=== PATIENT | male | born 1935 | race Caucasian/White ===

== ENCOUNTER 2023-10-04 12:52 | Emergency (ER) | payer MEDICARE, SELFPAY ==
[2023-10-04] VITALS (14 sets, daily range): BP systolic 98–119; BP diastolic 61–79; BMI 25.8
[2023-10-04] MEDS: DILAUDID 1 MG IV (14:27)
[2023-10-04 14:38] LABS: % Basophils 0.7 % (0-2); % Eosinophils 2.5 % (0-6); % Immature Granulocytes 0.5 % (0-0.5); % Lymphocytes 13.1 % (20.5-51.1); % Monocytes 11.6 % (1.7-9.3); % Neutrophils 71.6 % (42.2-75.2); Absolute Eosinophils 0.1 10^3/uL (0-0.7); Absolute Lymphocytes 0.7 10^3/uL (1.2-3.4); Absolute Monocytes 0.6 10^3/uL (0.1-0.6); Absolute Neutrophils 3.9 10^3/uL (1.4-6.5); Hematocrit 38.7 % (39.0-52.0); Hemoglobin 12.8 g/dL (13.0-18.0); Mean Corp Hgb Conc. 33.1 g/dL (33.0-37.0); Mean Corpuscular Hgb 32.9 pg (27.0-31.0); Mean Corpuscular Volume 99.5 fL (80.0-94.0); Mean Platelet Volume 10.7 fL (7.4-10.4); Nucleated Red Blood Cells % 0 % (-); Platelet Count 151 10^3/uL (130-400); Red Blood Cell Count 3.89 10^6/uL (4.70-6.10); Red Cell Dist. Width 14.1 % (11.5-14.5); White Blood Cell Count 5.5 10^3/uL (4.8-10.8)
--- NOTE | 2023-10-04 15:05 | ED.GENMED ---
History of Present Illness
<Juan Jose Campbell Jr., PA-C - Last Filed: 10/06/23 23:46>
General
Chief Complaint: Extremity Pain (non-traumatic)
Source: patient
Exam Limitations: none
Time Seen by Provider: 10/04/23 13:13
Nursing documentation reviewed up to this point in time: agreed with
Travel History
Have you had any contact with someone who has COVID-19?: No
Do you have any symptoms of coronavirus? Fever > 100 degrees, chills, cough, shortness of breath, sore throat, loss of taste or smell, muscle aches, or headache?: No
History of Present Illness
History of Present Illness:
87-year-old male with past medical history of A-fib currently on Coumadin, bilateral hip repair feeling a pop in his left hip after leaning forward earlier today unable to weight-bear since. Left leg shorter compared to the right.
Past History
<Juan Jose Campbell Jr., PA-C - Last Filed: 10/06/23 23:46>
Past History
ED Past Medical History: Arrthythmia (Atrial fibrillation), CHF, HTN and Other (hypoxia-chronically O2 dependent)
ED Past Surgical History: Orthopedic (Bilateral hip replacements) and Tonsilectomy
Social History
Tobacco: Non-smoker
Alcohol: None
Personal:
Living: with family
Employment: Retired
Family History
Family History: Other (Noncontributory)
Review of Systems
<REGINE Guerrero Jr. Last Filed: 10/06/23 23:46>
Review of Systems
Allergies reviewed?: Yes
All Other Systems: ROS reviewed and negative except as documented in HPI and ROS
Phy Exam
<REGINE Guerrero Jr. Last Filed: 10/06/23 23:46>
Physical Exam
Physical Exam:
GENERAL: Alert , in no apparent distress
EYE: pupils equal and reactive
NECK: Supple, no significant adenopathy.
ENT: o/p clr, mmm.
CARDIAC: Regular rate and rhythm .
LUNGS: Clear breath sounds bilaterally, no acute respiratory distress, no wheezes/rales/rhonchi
ABDOMEN: Soft, without focal tenderness, no r/g, no cvat
NEUROLOGICAL: Alert and oriented, no focal neuro deficits
SKIN: Warm and dry, skin intact.
MUSCULOSKELETAL: Left leg shorter than right. Unable to move the left leg
Course
<Juan Jose Campbell Jr., BONNY-Gabino - Last Filed: 10/06/23 23:46>
Orders/Labs/Results
Orders:
Orders
10/04/23 13:13
Hip, Left 2-3 Views [CR Hip - LT w/wo Pel 2-3 Vw*] Urgent
Comment:
Reason For Exam: eval for dislocation
Include a pelvis x-ray?: Yes
10/04/23 13:59
HYDROmorphone [Dilaudid] 1 mg IV NOW STA
10/04/23 14:26
BMP [Basic Metabolic Panel] Urgent
CBC/With Diff [Complete Blood Count/With Diff] Urgent
10/04/23 15:36
PT/INR [Prothrombin Time] Urgent
10/04/23 16:13
Propofol [Diprivan] 20 ml .ROUTE .STK-MED
10/04/23 17:02
Hip, Left 1 View [CR Hip - LT without Pel 1 Vw] Stat
Comment:
Reason For Exam: left hip post reduction portable please
Abnormal Lab Results
10/04/23 10/04/23
14:26 15:36
RBC 3.89 L 10^6/uL
(4.70-6.10)
Hgb 12.8 L g/dL
(13.0-18.0)
Hct 38.7 L %
(39.0-52.0)
MCV 99.5 H fL
(80.0-94.0)
MCH 32.9 H pg
(27.0-31.0)
MPV 10.7 H fL
(7.4-10.4)
Absolute Lymphs (auto) 0.7 L 10^3/uL
(1.2-3.4)
Lymphocytes % 13.1 L %
(20.5-51.1)
Monocytes % 11.6 H %
(1.7-9.3)
PT 24.6 H Sec
(11.4-14.6)
Carbon Dioxide 35 H mmol/L
(22-30)
BUN 25 H mg/dl
(9-20)
Glucose 115 H mg/dl
(70-99)
10/04/23 14:26
10/04/23 14:26
Vital Signs
Initial and Last Documented VS:
Initial Vital Signs
Temp Pulse Resp BP Pulse Ox
96.7 F L 68 20 119/79 96
10/04/23 13:17 10/04/23 13:17 10/04/23 13:17 10/04/23 13:17 10/04/23 13:17
Last Documented Vital Signs
Temp Pulse Resp BP Pulse Ox
97.7 F 71 14 108/68 95
10/04/23 17:30 10/04/23 18:00 10/04/23 18:00 10/04/23 18:00 10/04/23 17:30
Nohemylt;Fernando Faith, - Last Filed: 10/04/23 17:34>
Orders/Labs/Results
Orders:
Orders
10/04/23 13:13
Hip, Left 2-3 Views [CR Hip - LT w/wo Pel 2-3 Vw*] Urgent
Comment:
Reason For Exam: eval for dislocation
Include a pelvis x-ray?: Yes
10/04/23 13:59
HYDROmorphone [Dilaudid] 1 mg IV NOW STA
10/04/23 14:26
BMP [Basic Metabolic Panel] Urgent
CBC/With Diff [Complete Blood Count/With Diff] Urgent
10/04/23 15:36
PT/INR [Prothrombin Time] Urgent
10/04/23 16:13
Propofol [Diprivan] 20 ml .ROUTE .STK-MED
10/04/23 17:02
Hip, Left 1 View [CR Hip - LT without Pel 1 Vw] Stat
Comment:
Reason For Exam: left hip post reduction portable please
Abnormal Lab Results
10/04/23 10/04/23
14:26 15:36
RBC 3.89 L 10^6/uL
(4.70-6.10)
Hgb 12.8 L g/dL
(13.0-18.0)
Hct 38.7 L %
(39.0-52.0)
MCV 99.5 H fL
(80.0-94.0)
MCH 32.9 H pg
(27.0-31.0)
MPV 10.7 H fL
(7.4-10.4)
Absolute Lymphs (auto) 0.7 L 10^3/uL
(1.2-3.4)
Lymphocytes % 13.1 L %
(20.5-51.1)
Monocytes % 11.6 H %
(1.7-9.3)
PT 24.6 H Sec
(11.4-14.6)
Carbon Dioxide 35 H mmol/L
(22-30)
BUN 25 H mg/dl
(9-20)
Glucose 115 H mg/dl
(70-99)
10/04/23 14:26
10/04/23 14:26
Vital Signs
Initial and Last Documented VS:
Initial Vital Signs
Temp Pulse Resp BP Pulse Ox
96.7 F L 68 20 119/79 96
10/04/23 13:17 10/04/23 13:17 10/04/23 13:17 10/04/23 13:17 10/04/23 13:17
Last Documented Vital Signs
Temp Pulse Resp BP Pulse Ox
97.7 F 71 14 108/68 95
10/04/23 17:30 10/04/23 18:00 10/04/23 18:00 10/04/23 18:00 10/04/23 17:30
Procedures
<Juan Jose Campbell Jr., PA-C - Last Filed: 10/06/23 23:46>
Moderate Sedation
ASA Risk Score: Class III
Chart and allergies reviewed: Yes
Consent for anesthesia obtained: Yes
Time out completed (validating right patient & procedure): Yes
History of difficult intubation: No
Airway free of obstruction: Yes
Patient has a gag reflex: Yes
Patient is able to open mouth: Yes
Patient has no dentures: Yes
Patient has no loose teeth: Yes
Medication administered by Provider during Moderate Sedation: IV Propofol (mg) (40)
Total dose administered: 40
Time drug administered: 17:00
Start Time: 17:00
Stop Time: 17:11
Joint/Fracture Reduction
Left Hip:
Indication for procedure:: hip dislocation
Procedure completed by: Myself
Consent form signed: Yes
Joint reduced: with anesthesia sedation
Anesthesia/sedation: Moderate sedation
Injury was: closed
Further treatement: needs further treatment
Post reduction exam: stable
Capillary Refill: normal
Normal distal neurovascular exam?: Yes
Peripheral Pulses: dorsalis pedis (left): 2+
<Fernando Faith DO - Last Filed: 10/04/23 17:34>
Moderate Sedation
Stop Time: 17:19
<Juan Jose Campbell Jr., PA-C - Last Filed: 10/06/23 23:46>
MDM/Problems Addressed
MDM/Problems Addressed:
87-year-old male presenting to the emergency department today with concerns of left hip popping sensation also shortening of the left leg since. Concern for hip dislocation. X-ray confirming hip dislocation plan for procedural sedation and
reduction. Patient given Dilaudid for pain. Patient was given propofol hip was reduced first attempt tolerated well. Discharged in stable condition
<Juan Jose Campbell Jr., PA-C - Last Filed: 10/06/23 23:46>
*Critical Care Note
Total Time (30-74mins, 75-104mins- exclusive of procedures): Not Applicable
ED Attending Note
<Juan Jose Campbell Jr., PA-C - Last Filed: 10/06/23 23:46>
-
Portions of this chart may have been created with voice recognition software.� Occasional wrong word or��sound alike� substitutions may have occurred due to the inherent limitations of voice recognition software.
<Fernando Faith DO - Last Filed: 10/04/23 17:34>
ED Attending Note
Patient seen and examined by attending physician: Yes
I performed the substantive portion of visit, reviewed & personally made and approve the management plan that is documented in note by myself or RUBIO.: Yes
ED Attending Note:
87-year-old male presents with left hip pain after bending over. Patient has a history of hip replacement. My evaluation the patient does have bilateral lower extremity edema with a shortened left lower extremity. Assessment and plan: Hip was
reduced at bedside by DELORIS Almanzar. I was present for the reduction. Sedation performed by me with 40 mg of propofoL. See documentation by REGINE
Discharge Plan
Departure
Patient Disposition: Home (Routine Discharge)
Patient with high blood pressure during this ER visit?: No
Condition: Good
Covid-19: Not Applicable
Discharge Problem:
Dislocated hip
Instructions: Hip Dislocation (DC), MODERATE SEDATION ADULT
Prescriptions:
No Action
ferrous sulfate [FeroSul] 325 MG tablet
325 mg PO DAILY
acetaminophen 500 mg Tablet
500 mg PO DAILY
ergocalciferol (vitamin D2) 1,250 mcg (50,000 unit) Capsule
1,250 mcg PO TU
warfarin 1 mg Tablet
3 mg PO MO
warfarin [Jantoven] 1 MG tablet
2.5 mg PO SUTUWETHFRSA
metoprolol succinate 25 mg Tablet Extended Release 24 Hr
25 mg PO QPM
metoprolol succinate 50 MG tablet extended release 24 hr
50 mg PO QDAY
Rx Instructions:
AM
furosemide [Lasix] 80 mg tablet
80 mg PO BID Qty: 60 0RF
potassium chloride [Klor-Con M20] 20 MEQ tablet,ER particles/crystals
20 meq PO DAILY 30 Days 0RF
allopurinol 300 MG tablet
300 mg PO DAILY 30 Days 0RF
rosuvastatin 5 MG tablet
5 mg PO QPM 30 Days 0RF
Referrals:
Vj Ash MD [Family Provider] -
Activity Restrictions/Additional Instructions:
You came to the emergency department today with concerns of a hip dislocation. This was reduced here. Please avoid any excessive flexion of the hip and follow-up closely with your orthopedic doctor. Return to the emergency department for any
worsening, new or concerning symptoms.
Maintain dislocation precautions:
Do not bend the operated hip past 90 degrees
Umer splint or other knee immobilizer can help with this as most individuals cannot flex hip without flexing knee
Do not cross the midline of the body with operated leg (use hip abduction pillow)
Do not rotate the operated leg inward
In bed, toes and knee cap should point toward ceiling
Interventions
Interventions:
*Risk Screen - Suicide Last Done: 10/04/23 13:54
*General Assessment Last Done: 10/04/23 13:54
*Neglect/Abuse Screening Last Done: 10/04/23 13:54
ED- Fall Risk Assessment Last Done: 10/04/23 13:54
*ED COVID-19 Vaccine History Last Done: 10/04/23 15:37
*Nursing Disposition Last Done: 10/04/23 18:47
ED-Skin Assessment Last Done: 10/04/23 15:38
ED-Musculoskeletal Assessment Last Done: 10/04/23 15:38
Discharge Date and Time
Discharge Date/Time: 10/04/23 18:47
Print Language: PALESTINIAN
[2023-10-04 15:08] LABS: Blood Urea Nitrogen 25 mg/dl (9-20); Calcium 9.5 mg/dl (8.4-10.2); Carbon Dioxide 35 mmol/L (22-30); Chloride 98 mmol/L (98-107); Estimated Creatinine Clearance 67 ml/min; Glucose 115 mg/dl (70-99); Potassium 3.5 mmol/L (3.5-5.1); Sodium 137 mmol/L (135-145); eGFR > 60.00
[2023-10-04 15:54] LABS: INR 2.24; PT 24.6 Sec (11.4-14.6)
== END 2023-10-04 18:47 | disposition home or self-care (01) ==
LOC: EMR 12:52
PROVIDERS: Physician Assistant; EMERGENCY PHYSICIAN Emergency Medicine; FAMILY PHYSICIAN Family Medicine
DX: T84.021A Dislocation of internal left hip prosthesis, initial encounter (principal); Y79.2 Prosthetic and other implants, materials and accessory orthopedic devices associated with adverse incidents
CPT/HCPCS: 99284; 27266; 73501; 73502; 80048; 85025; 85610

== ENCOUNTER → 2024-06-25 10:24 | Outpatient (REF) | payer MEDICARE, SELFPAY ==
[2024-06-25 11:11] LABS: Blood Urea Nitrogen 50 mg/dl (9-20); Calcium 9.8 mg/dl (8.4-10.2); Chloride 90 mmol/L (98-107); Glucose 123 mg/dl (70-99); Potassium 2.8 mmol/L (3.5-5.1); Sodium 140 mmol/L (135-145); eGFR 52.84
[2024-06-25 11:23] LABS: Carbon Dioxide 40 mmol/L (22-30)
== END ==
LOC: REG 10:24
PROVIDERS: ATTENDING PHYSICIAN Family Medicine
DX: E87.6 Hypokalemia (principal)
CPT/HCPCS: 36415; 80048

== ENCOUNTER → 2024-06-29 10:54 | Outpatient (REF) | payer MEDICARE, SELFPAY ==
[2024-06-29 12:11] LABS: Blood Urea Nitrogen 36 mg/dl (9-20); Calcium 9.8 mg/dl (8.4-10.2); Carbon Dioxide 38 mmol/L (22-30); Chloride 90 mmol/L (98-107); Glucose 170 mg/dl (70-99); Potassium 3.3 mmol/L (3.5-5.1); Sodium 139 mmol/L (135-145); eGFR > 60.00
== END ==
LOC: REG 10:54
PROVIDERS: ATTENDING PHYSICIAN Physician Assistant
DX: E87.6 Hypokalemia (principal)
CPT/HCPCS: 36415; 80048

== ENCOUNTER 2024-10-04 04:08 | Emergency (ER) | payer MEDICARE, SELFPAY ==
[2024-10-04 04:11] VITALS: BP 120/86
[2024-10-04 04:29] VITALS: BMI 26.8
--- NOTE | 2024-10-04 04:30 | EDRN ---
Pt says he was walking into his bedroom, got lightheaded so he sat on the floor. Pt felt 'really lightheaded' then. Daughter at bedside says pt's O2 was 81% on 3.5 lpm O2. Pt told family he did not feel right so he was brought to the ED. Pt adds
he is not sure he had his O2 on when he sat down because he was in the bathroom and removed it to blow his nose. Pt had bloodwork done on and daughter says she has not gotten the results yet. No cp, abd pain, n/v/d/c, fever/chills/cough,
urinary symptoms, weakness.
--- NOTE | 2024-10-04 04:59 | ED.GENMED ---
History of Present Illness
General
Chief Complaint: Breathing Problem
Source: patient
Exam Limitations: none
Time Seen by Provider: 10/04/24 04:52
History of Present Illness
History of Present Illness:
See MDM
Past History
Past History
ED Past Medical History: Arrthythmia (Atrial fibrillation), CHF, HTN and Other (hypoxia-chronically O2 dependent)
ED Past Surgical History: Orthopedic (Bilateral hip replacements) and Tonsilectomy
Social History
Tobacco: Non-smoker
Alcohol: None
Personal:
Living: with family
Employment: Retired
Family History
Family History: Other (Noncontributory)
Phy Exam
Physical Exam
Physical Exam:
See MDM
Scores
Heart Failure Risk
Heart Failure Risk Score: Yes
History of Stroke or TIA: No
History of intubation for respiratory distress: No
Heart rate on ED arrival >/= 110: No
SaO2 <90% on arrival on room air: Yes
HR >/=110 during 3min walk test (or too ill to perform test): Yes
ECG has acute ischemic changes: No
Urea >/=12mmol/L (BUN 33.6mg/dL): No
Serum CO2>/=35mmol/L: No
Troponin I or T elevated to VT Level (0.4mg/dL): No
NT-proBNP >/=5,000ng/L (5,000pg/ml): Yes
HF Risk Score: 4
Admission Status: HIGH RISK 26.1% Consider SNF treatment or admission to hospital
Course
Orders/Labs/Results
Orders:
Orders
10/04/24 04:54
BNP [NT-proBNP] Urgent
Complete Blood Count/With Diff Urgent
Comprehensive Metabolic Panel Urgent
PT/INR [Prothrombin Time] Urgent
10/04/24 04:55
Chest [CR Chest - 2 Views ] Urgent
Comment:
Reason For Exam: lightheaded, low pulse ox
10/04/24 04:59
Electrocardiogram (*1) Urgent
Reason for Study: Shortness of Breath
EKG- Treatment ONCE
10/04/24 05:43
Metolazone [Zaroxolyn] 2.5 mg PO NOW STA
Abnormal Lab Results
10/04/24
04:54
RBC 3.54 L 10^6/uL
(4.70-6.10)
Hgb 11.5 L g/dL
(13.0-18.0)
Hct 36.2 L %
(39.0-52.0)
MCV 102.3 H fL
(80.0-94.0)
MCH 32.5 H pg
(27.0-31.0)
MCHC 31.8 L g/dL
(33.0-37.0)
RDW 14.7 H %
(11.5-14.5)
Plt Count 126 L 10^3/uL
(130-400)
MPV 10.8 H fL
(7.4-10.4)
Absolute Lymphs (auto) 0.8 L 10^3/uL
(1.2-3.4)
Immature Gran % 0.6 H %
(0-0.5)
Neutrophils % 75.3 H %
(42.2-75.2)
Lymphocytes % 12.6 L %
(20.5-51.1)
Monocytes % 9.4 H %
(1.7-9.3)
PT 24.7 H Sec
(11.4-14.6)
Carbon Dioxide 32 H mmol/L
(22-30)
BUN 30 H mg/dl
(9-20)
Glucose 118 H mg/dl
(70-99)
10/04/24 04:54
10/04/24 04:54
Vital Signs
Initial and Last Documented VS:
Initial Vital Signs
Temp Pulse Resp BP Pulse Ox
98 F 90 24 120/86 98
10/04/24 04:11 10/04/24 04:11 10/04/24 04:11 10/04/24 04:11 10/04/24 04:11
Last Documented Vital Signs
Temp Pulse Resp BP Pulse Ox
98 F 74 20 122/80 94
10/04/24 04:11 10/04/24 05:00 10/04/24 05:00 10/04/24 05:00 10/04/24 05:00
MDM/Problems Addressed
Differential Diagnosis Includes:
HPI and MDM Narrative:
88-year-old male presenting for evaluation of shortness of breath. This occurred while he was walking at home. He had to rest and bring himself to the ground. When he was lifted up, his pulse ox was found to be 81%. Patient lives around 3.5 L
nasal cannula chronically. On arrival, patient was placed on his baseline nasal cannula and satting at 96%. He states all shortness of breath has resolved. Patient was actually due for metolazone today. He takes this about once every 2 weeks
when his weight goes up. Daughter at bedside states this usually helps significantly. Given his history, will obtain chest x-ray and basic blood work
Physical exam
General: Well appearing and non-toxic
HEENT: protecting airway
Neck: appears supple
CV: No evidence of cyanosis. Irregular rhythm
Resp: No accessory muscle use. Decreased breath sounds at bases
Abd: Non-distended
Extremities: +3 pitting edema bilateral lower extremities (chronic per patient)
Neuro: alert
Psych: Normal affect
Skin: Intact
Problems Addressed including Acute and Chronic Conditions affecting care:
1. Shortness of breath
Acuity: acute
Prognosis: stable
Details: Potentially setting of CHF exacerbation. Will obtain chest x-ray
Updates
Chest x-ray consistent with right pleural effusion and congestive heart failure. There is a questionable infiltrate in the right middle lobe but these lung markings can be seen on prior x-rays as well. Given no fever or leukocytosis, will treat as
CHF rather than pneumonia. Both patient and daughter feel comfortable going home. Will give dose of metolazone emergency department and they will go home and take Lasix
Differential Diagnosis (but not limited to): CHF exacerbation, COPD, pneumonia
Testing considered: D-dimer
Drug therapy (if applicable): OTC meds, please see d/c instruction regarding Rx drugs
Amount and/or Complexity of Data Reviewed
Clinical info obtained from: Patient and daughter
External data reviewed: N/A
Labs I independently reviewed (but not limited to): Elevated BNP
Radiology: X-ray independently reviewed: Chest x-ray consistent with CHF exacerbation
Pulse Ox: not hypoxic
EKG independently reviewed: A-fib, normal axis, no STEMI
Horse Breaker: A-fib
Critical Care: N/A
Risk of Complication:
Social Determinants of health: Good social support
Discussed with other providers: N/A
Escalation of Care includes Admit/Obs: After being observed in the Emergency Department, pt stable for discharge.
Occasional wrong word or 'sound a like' substitutions may have occurred due to the inherent limitations of voice recognition software. Read the chart carefully and recognize, using context, where substitutions have occurred.
*Critical Care Note
Total Time (30-74mins, 75-104mins- exclusive of procedures): Not Applicable
ED Attending Note
-
Portions of this chart may have been created with voice recognition software.� Occasional wrong word or��sound alike� substitutions may have occurred due to the inherent limitations of voice recognition software.
Discharge Plan
Departure
Patient Disposition: Home (Routine Discharge)
Date of Disposition: 10/04/24
Time of Disposition: 05:44
Patient with high blood pressure during this ER visit?: No
Discharge Problem:
Acute CHF (congestive heart failure)
Prescriptions:
No Action
ferrous sulfate [FeroSul] 325 MG tablet
325 mg PO DAILY
ergocalciferol (vitamin D2) 1,250 mcg (50,000 unit) Capsule
1,250 mcg PO TU
warfarin 1 mg Tablet
3 mg PO MOFR
warfarin [Jantoven] 1 MG tablet
2.5 mg PO SUTUWETHSA
metoprolol succinate 25 mg Tablet Extended Release 24 Hr
25 mg PO QPM
metoprolol succinate 50 MG tablet extended release 24 hr
50 mg PO QDAY
Rx Instructions:
AM
furosemide [Lasix] 40 mg Tablet
80 mg PO BID
metolazone 2.5 mg Tablet
2.5 mg PO DAILYPRN PRN (Reason: weight 185lbs or more)
Rx Instructions:
take 30 minutes prior to lasix
calcium
1 tab PO DAILY
potassium chloride [Klor-Con M20] 20 MEQ tablet,ER particles/crystals
60 meq PO DAILY
rosuvastatin 5 MG tablet
5 mg PO HS
allopurinol 300 MG tablet
300 mg PO DAILY 30 Days 0RF
Referrals:
Catracho Cardenas MD [Family Provider] -
Activity Restrictions/Additional Instructions:
Please return for any worsening symptoms.
You may return at any time if you have further concerns.
Please follow up with your doctor at the first available appointment, preferably this week.
Thank you for choosing [facility].
Interventions
Interventions:
*Risk Screen - Suicide Last Done: 10/04/24 04:11
*General Assessment Last Done: 10/04/24 04:29
*Neglect/Abuse Screening Last Done: 10/04/24 04:11
*ED- Fall Risk Assessment Last Done: 10/04/24 05:02
*ED COVID-19 Vaccine History Last Done: 10/04/24 04:29
ED- Cardiac Assessment Last Done: 10/04/24 05:02
ED- Pulmonary Assessment Last Done: 10/04/24 05:02
Discharge Date and Time
Print Language: CZECH
[2024-10-04 05:00] VITALS: BP 122/80
[2024-10-04 05:08] LABS: % Basophils 0.3 % (0-2); % Eosinophils 1.8 % (0-6); % Immature Granulocytes 0.6 % (0-0.5); % Lymphocytes 12.6 % (20.5-51.1); % Monocytes 9.4 % (1.7-9.3); % Neutrophils 75.3 % (42.2-75.2); Absolute Eosinophils 0.1 10^3/uL (0-0.7); Absolute Lymphocytes 0.8 10^3/uL (1.2-3.4); Absolute Monocytes 0.6 10^3/uL (0.1-0.6); Absolute Neutrophils 4.7 10^3/uL (1.4-6.5); Hematocrit 36.2 % (39.0-52.0); Hemoglobin 11.5 g/dL (13.0-18.0); Mean Corp Hgb Conc. 31.8 g/dL (33.0-37.0); Mean Corpuscular Hgb 32.5 pg (27.0-31.0); Mean Corpuscular Volume 102.3 fL (80.0-94.0); Mean Platelet Volume 10.8 fL (7.4-10.4); Nucleated Red Blood Cells % 0 % (-); Platelet Count 126 10^3/uL (130-400); Red Blood Cell Count 3.54 10^6/uL (4.70-6.10); Red Cell Dist. Width 14.7 % (11.5-14.5); White Blood Cell Count 6.3 10^3/uL (4.8-10.8)
[2024-10-04 05:12] LABS: INR 2.23; PT 24.7 Sec (11.4-14.6)
[2024-10-04 05:18] LABS: ALT (SGPT) 22 U/L (0-50); AST (SGOT) 35 U/L (17-59); Alkaline Phosphatase 121 U/L (38-126); Blood Urea Nitrogen 30 mg/dl (9-20); Calcium 9.4 mg/dl (8.4-10.2); Carbon Dioxide 32 mmol/L (22-30); Chloride 102 mmol/L (98-107); Estimated Creatinine Clearance 53 ml/min; Glucose 118 mg/dl (70-99); Potassium 4.3 mmol/L (3.5-5.1); Sodium 143 mmol/L (135-145); Total Protein 7.1 g/dl (6.3-8.2); eGFR > 60.00
[2024-10-04 05:29] LABS: NT-proBNP 5430 pg/ml
[2024-10-04 05:44] VITALS: BP 119/78
[2024-10-04] MEDS: ZAROXOLYN 2.5 MG PO (05:46)
== END 2024-10-04 06:10 | disposition home or self-care (01) ==
LOC: EMR 04:08
PROVIDERS: EMERGENCY PHYSICIAN Student in an Organized Health Care Education/Training Program; FAMILY PHYSICIAN Family Medicine
DX: I11.0 Hypertensive heart disease with heart failure (principal); I50.9 Heart failure, unspecified; Z99.81 Dependence on supplemental oxygen; I48.91 Unspecified atrial fibrillation
CPT/HCPCS: 99285; 71046; 80053; 83880; 85025; 85610; 93005

== ENCOUNTER 2024-12-23 07:48 | Emergency (ER) | payer MEDICARE, SELFPAY ==
[2024-12-23 07:58] VITALS: BP 116/70
[2024-12-23 08:00] VITALS: BP 114/58
--- NOTE | 2024-12-23 09:06 | ED.GENMED ---
History of Present Illness
General
Chief Complaint: Skin Problem
Source: patient and family
Exam Limitations: none
Time Seen by Provider: 12/23/24 07:52
History of Present Illness
History of Present Illness:
89-year-old male presents with a rash to his left thigh along with pain to the left groin. Progressive over days. No fever chills nausea or vomiting. Increased pain with weightbearing. Concerned of recent tick bites.
Past History
Past History
ED Past Medical History: Arrthythmia (Atrial fibrillation), CHF, HTN and Other (hypoxia-chronically O2 dependent)
ED Past Surgical History: Orthopedic (Bilateral hip replacements) and Tonsilectomy
Social History
Tobacco: Non-smoker
Alcohol: None
Personal:
Living: with family
Employment: Retired
Family History
Family History: Other (Noncontributory)
Review of Systems
Review of Systems
All Other Systems: Not applicable
Constitutional: Denies fever or chills
Respiratory: Reports no symptoms
Cardiac: Reports no symptoms
ABD/GI: Reports no symptoms
Phy Exam
Physical Exam
Physical Exam:
GENERAL: Alert and oriented in no apparent distress. Elderly and frail
EYE: Orbits normal.
NECK: Supple
CARDIAC: Regular rate and rhythm without any obvious murmurs.
LUNGS: Clear breath sounds,normal. Chronic oxygen use
ABDOMEN: Soft, without focal tenderness or distention
Pelvic: Bilateral large inguinal hernias. Nontender. Tender adenopathy to the left inguinal area.
NEUROLOGICAL: Alert and oriented , grossly non-focal
SKIN: Warm and dry, area of ecchymosis to the left lower thigh
MUSCULOSKELETAL: Significant bilateral lower extremity pitting edema left greater than right
PSYCH: Normal and appropriate interaction.
Course
Orders/Labs/Results
Orders:
Orders
12/23/24 08:29
IV Insert/Care/Rem.- Treatment PRN
Femur, Left 2 View [CR Femur - Left Min 2 Vw] Urgent
Comment:
Reason For Exam: Nontraumatic pain
12/23/24 08:51
Basic Metabolic Panel Urgent
Complete Blood Count/With Diff Urgent
Lyme Progressive Urgent
PTT Urgent
Prothrombin Time Urgent
12/23/24 10:13
CT Lower Ext W/o Iv Cont Lt Urgent
Comment:
Reason For Exam: swelling left inguinal area
12/23/24 12:51
Acetaminophen [Tylenol] 650 mg PO NOW STA
Physical Therapy Consult [Pt Eval And Treat] Urgent
Activity Level: Ambulate
12/23/24 14:27
Case Management Consult ONCE
Case Management Consult: VN/Home Care
Abnormal Lab Results
12/23/24
08:51
RBC 3.28 L 10^6/uL
(4.70-6.10)
Hgb 10.8 L g/dL
(13.0-18.0)
Hct 33.3 L %
(39.0-52.0)
MCV 101.5 H fL
(80.0-94.0)
MCH 32.9 H pg
(27.0-31.0)
MCHC 32.4 L g/dL
(33.0-37.0)
RDW 15.0 H %
(11.5-14.5)
MPV 10.8 H fL
(7.4-10.4)
Absolute Lymphs (auto) 0.9 L 10^3/uL
(1.2-3.4)
Absolute Monos (auto) 0.7 H 10^3/uL
(0.1-0.6)
Lymphocytes % 12.2 L %
(20.5-51.1)
Monocytes % 10.1 H %
(1.7-9.3)
PT 36.1 H Sec
(11.4-14.6)
APTT 38.6 H Sec
(23.4-35.0)
Potassium 3.4 L mmol/L
(3.5-5.1)
Carbon Dioxide 37 H mmol/L
(22-30)
BUN 29 H mg/dl
(9-20)
Glucose 121 H mg/dl
(70-99)
12/23/24 08:51
12/23/24 08:51
Vital Signs
Initial and Last Documented VS:
Initial Vital Signs
BP
116/70
12/23/24 07:58
Last Documented Vital Signs
Pulse BP Pulse Ox
68 117/72 96
12/23/24 13:09 12/23/24 14:15 12/23/24 15:00
MDM/Problems Addressed
Differential Diagnosis Includes:
Tenderness to the left of inguinal area. Large hernias although nontender and known. Area of ecchymosis to left medial thigh. To consider hematoma, soft tissue injury, doubt Lyme issue although will be sent. Doubt bony issue although will check
x-ray. Doubt acute vascular issue.
*Radiology
Radiology exam reviewed: radiology read reviewed (No acute findings. Inguinal hernia)
*Pulse Oximetry
Patient hypoxic: no (97)
*Critical Care Note
Total Time (30-74mins, 75-104mins- exclusive of procedures): Not Applicable
Data Reviewed
Review of Other/Old Records Reveals: Labs, Records and Testing
Update Note
Update Note:
Patient has remained medically stable and nontoxic. No inguinal hernia. Clinically not incarcerated. Not really the point of tenderness. He clearly has an area of ecchymosis down his left leg. This may be all some kind of local soft tissue
trauma causing hematoma and bleeding down the leg. Discussed inpatient versus outpatient management inpatient management was offered. However patient feel strongly that he would like to go home. He will hold his Coumadin today. Discussed further
dosing with his primary physician. We will have physical therapy evaluate. If he cannot walk he will need admission. If he cannot walk and still would prefer outpatient follow-up that is not unreasonable
Patient ambulated well with a walker. Would like to go home. We will get home health via case management
ED Attending Note
-
Portions of this chart may have been created with voice recognition software.� Occasional wrong word or��sound alike� substitutions may have occurred due to the inherent limitations of voice recognition software.
Discharge Plan
Departure
Patient Disposition: Home (Routine Discharge)
Date of Disposition: 12/23/24
Time of Disposition: 14:32
Patient with high blood pressure during this ER visit?: No
Discharge Problem:
Left groin/leg pain, Supratherapeutic INR, Chronic bilateral edema
Instructions: BLOOD PRESSURE
Prescriptions:
No Action
ferrous sulfate [FeroSul] 325 MG tablet
325 mg PO DAILY
ergocalciferol (vitamin D2) 1,250 mcg (50,000 unit) Capsule
1,250 mcg PO TU
warfarin 1 mg Tablet
3 mg PO MOFR
warfarin [Jantoven] 1 MG tablet
2.5 mg PO SUTUWETHSA
metoprolol succinate 25 mg Tablet Extended Release 24 Hr
25 mg PO QPM
metoprolol succinate 50 MG tablet extended release 24 hr
50 mg PO QDAY
Rx Instructions:
AM
furosemide [Lasix] 40 mg Tablet
80 mg PO BID
metolazone 2.5 mg Tablet
2.5 mg PO DAILYPRN PRN (Reason: weight 185lbs or more)
Rx Instructions:
take 30 minutes prior to lasix
calcium
1 tab PO DAILY
potassium chloride [Klor-Con M20] 20 MEQ tablet,ER particles/crystals
60 meq PO DAILY
rosuvastatin 5 MG tablet
5 mg PO HS
allopurinol 300 MG tablet
300 mg PO DAILY 30 Days 0RF
Referrals:
Catracho Cardenas MD [Family Provider, [facility]] - Tomorrow
Activity Restrictions/Additional Instructions:
No Coumadin today. Get your INR repeated tomorrow. And follow-up dosing with your primary physician
Recheck with increased pain swelling of the leg. Inability to ambulate. Abdominal pain fever or any other concerning symptoms
Interventions
Interventions:
*Risk Screen - Suicide Last Done: 12/23/24 08:47
*General Assessment Last Done: 12/23/24 08:47
*Neglect/Abuse Screening Last Done: 12/23/24 09:14
*ED COVID-19 Vaccine History Last Done: 12/23/24 08:47
*Nursing Disposition Last Done: 12/23/24 15:56
ED-Skin Assessment Last Done: 12/23/24 14:00
Discharge Date and Time
Discharge Date/Time: 12/23/24 16:04
Print Language: EQUATORIAL GUINEAN
[2024-12-23 09:07] LABS: % Basophils 0.4 % (0-2); % Eosinophils 1.9 % (0-6); % Immature Granulocytes 0.4 % (0-0.5); % Lymphocytes 12.2 % (20.5-51.1); % Monocytes 10.1 % (1.7-9.3); Absolute Eosinophils 0.1 10^3/uL (0-0.7); Absolute Lymphocytes 0.9 10^3/uL (1.2-3.4); Absolute Monocytes 0.7 10^3/uL (0.1-0.6); Absolute Neutrophils 5.5 10^3/uL (1.4-6.5); Hematocrit 33.3 % (39.0-52.0); Hemoglobin 10.8 g/dL (13.0-18.0); Mean Corp Hgb Conc. 32.4 g/dL (33.0-37.0); Mean Corpuscular Hgb 32.9 pg (27.0-31.0); Mean Corpuscular Volume 101.5 fL (80.0-94.0); Mean Platelet Volume 10.8 fL (7.4-10.4); Nucleated Red Blood Cells % 0 % (-); Platelet Count 148 10^3/uL (130-400); Red Blood Cell Count 3.28 10^6/uL (4.70-6.10); White Blood Cell Count 7.4 10^3/uL (4.8-10.8)
[2024-12-23 09:18] LABS: APTT 38.6 Sec (23.4-35.0); INR 3.59; PT 36.1 Sec (11.4-14.6)
[2024-12-23 09:35] LABS: Blood Urea Nitrogen 29 mg/dl (9-20); Calcium 9.5 mg/dl (8.4-10.2); Carbon Dioxide 37 mmol/L (22-30); Chloride 99 mmol/L (98-107); Glucose 121 mg/dl (70-99); Potassium 3.4 mmol/L (3.5-5.1); Sodium 142 mmol/L (135-145); eGFR > 60.00
[2024-12-23] MEDS: TYLENOL 650 MG PO (13:01)
[2024-12-23 13:09] VITALS: BP 124/69; BMI 25.4
[2024-12-23 13:55] VITALS: BP 107/63
[2024-12-23 14:15] VITALS: BP 107/63; BP 117/72; PULSE 82; O2SAT 99
--- NOTE | 2024-12-23 15:07 | CM ---
CM reviewed chart and met with pt and daughter Prerna bedside in ED.
Pt lives with , I level home, [address], daughter and FLETCHER live in other half of house
Independent in ADLs, personal care and ambulation at baseline, was using cane, now will use walker
Also has O2 continuous, 3L NC, has shower chair, commode
Pt has hx [facility], agreeable to referral. Referral sent via [facility].
Daughter Prerna is POA and best contact [phone]
PCP: Catracho Cardenas
Pharmacy: [facility] [address], [place]
[2024-12-24 13:28] LABS: Lyme Antibody Screen, EIA Equivocal (Negative)
== END 2024-12-23 16:04 | disposition home or self-care (01) ==
LOC: EMR 07:48
PROVIDERS: EMERGENCY PHYSICIAN Emergency Medicine; FAMILY PHYSICIAN Family Medicine
DX: M79.605 Pain in left leg (principal); R10.32 Left lower quadrant pain; R79.1 Abnormal coagulation profile; R60.0 Localized edema; S70.12XA Contusion of left thigh, initial encounter; X58.XXXA Exposure to other specified factors, initial encounter; I11.0 Hypertensive heart disease with heart failure; I50.9 Heart failure, unspecified; I48.91 Unspecified atrial fibrillation; Z96.643 Presence of artificial hip joint, bilateral; K40.20 Bilateral inguinal hernia, without obstruction or gangrene, not specified as recurrent; Z79.01 Long term (current) use of anticoagulants; Z99.81 Dependence on supplemental oxygen
CPT/HCPCS: 99284; 73552; 73700; 80048; 85025; 85610; 85730; 86617; 86618

== ENCOUNTER → 2025-03-25 12:05 | Outpatient (REF) | payer MEDICARE, SELFPAY ==
[2025-03-25 13:06] LABS: APTT 36.2 Sec (23.4-35.0); INR 2.53; PT 27.7 Sec (11.4-14.6)
== END ==
LOC: REG 12:05
PROVIDERS: ATTENDING PHYSICIAN Physician Assistant
DX: M25.552 Pain in left hip (principal); T14.8XXA Other injury of unspecified body region, initial encounter; Z79.01 Long term (current) use of anticoagulants
CPT/HCPCS: 36415; 73502; 85610; 85730